=== PATIENT | male | born 1980 | race Caucasian/White ===

== ENCOUNTER 2018-12-20 10:44 | Emergency (ER) | payer SELFPAY ==
[~2018-12-20] VITALS: Ht 180.3 cm; Wt 81.6 kg
[2018-12-20 10:48] VITALS: BP 139/84
--- NOTE | 2018-12-20 12:51 | NUR ---
Patient discharged to home in stable condition. Written and verbal after care instructions given. Patient verbalizes understanding of instruction.
== END 2018-12-20 12:50 | disposition home or self-care (01) ==
LOC: ER 10:44
DX: L02.211 Cutaneous abscess of abdominal wall (principal)
CPT/HCPCS: 10060; 99283; A6402; A6403